=== PATIENT | female | born 1985 | race Caucasian/White ===

== ENCOUNTER 2016-10-14 20:14 | Emergency (ER) | payer SELFPAY ==
[~2016-10-14] VITALS: Ht 152.4 cm; Wt 97.7 kg
[~2016-10-14 20:14] MED LIST: CEPH500 PO; METF500T4 PO
[2016-10-14 21:01] LABS: GLUCOSE,POINT OF CARE 368 MG/DL (70-110)
[2016-10-14] MEDS ORDERED: METF-844 PO (21:20)
[2016-10-14] MEDS ORDERED: GLIP5TAB11 PO (21:20)
[2016-10-14 23:22] LABS: GLUCOSE COMMENT 1 Doctor Notified; GLUCOSE,POINT OF CARE 297 MG/DL (70-110)
[2016-10-14] MEDS ORDERED: SODIUM CHLORIDE 0.9% 1,000 ML IV ONE (23:30)
[2016-10-15 00:12] VITALS: BP 110/67
== END 2016-10-15 00:47 | disposition home or self-care (01) ==
LOC: EMS 20:16
DX: J40 Bronchitis, not specified as acute or chronic (principal); E11.9 Type 2 diabetes mellitus without complications; F17.200 Nicotine dependence, unspecified, uncomplicated
CPT/HCPCS: 71020; 81025; 82948; 82962; 96360; 99284; J7030

== ENCOUNTER 2018-08-12 21:56 | Emergency (ER) | payer MEDICAID ==
[~2018-08-12] VITALS: Ht 160 cm; Wt 110.0 kg
[~2018-08-12 21:56] MED LIST changes: +GLIP5TAB11 PO; +METF-844 PO; +METF-960 PO; -METF500T4 PO
[2018-08-12 22:01] VITALS: BP 134/87
[2018-08-12] MEDS ORDERED: GLIP5 PO (22:05)
[2018-08-12] MEDS ORDERED: CARISOPRODOL 350 MG TABLET PO ONE (23:30)
[2018-08-12] MEDS ORDERED: KETOROLAC TROMETHAMINE 60 MG/2 ML VIAL IM ONE (23:30)
== END 2018-08-13 00:23 | disposition home or self-care (01) ==
LOC: EMS 21:58
DX: M54.2 Cervicalgia (principal); M54.6 Pain in thoracic spine; E11.9 Type 2 diabetes mellitus without complications; F17.210 Nicotine dependence, cigarettes, uncomplicated; Z79.84 Long term (current) use of oral hypoglycemic drugs
CPT/HCPCS: 82962; 96372; 99283; J1885

== ENCOUNTER 2021-01-05 18:27 | Emergency (ER) | payer MEDICAID ==
[~2021-01-05] VITALS: Ht 154.9 cm; Wt 100.0 kg
[~2021-01-05 18:27] MED LIST changes: -CEPH500 PO; +GLIP5 PO; -GLIP5TAB11 PO; -METF-844 PO
[2021-01-05] MEDS ORDERED: SODIUM CHLORIDE 0.9% 1,000 ML IV ONE ×2 (19:30→20:45)
[2021-01-05] MEDS ORDERED: KETOROLAC TROMETHAMINE 30 MG/ML VIAL IVP ONE (19:30)
[2021-01-05 20:12] LABS: BASOPHILS % (AUTO) 0.7 % (0.0-2.0); EOSINOPHILS % (AUTO) 0.7 % (1.0-6.0); HEMATOCRIT 40.3 % (36-46); HEMOGLOBIN 13.1 g/dL (12.0-16.0); LYMPHOCYTES # (AUTO) 3.9 K/uL (1.0-4.8); LYMPHOCYTES % (AUTO) 29.6 % (22.0-44.0); MEAN CORPUSCULAR HGB CONC 32.5 G/dL (31.0-37.0); MEAN CORPUSCULAR VOLUME 83 fL (80-100); MONOCYTES # (AUTO) 0.7 K/uL (0.1-1.0); MONOCYTES % (AUTO) 5.4 % (2.0-9.0); NEUTROPHILS # (AUTO) 8.5 K/uL (1.8-7.7); NEUTROPHILS % (AUTO) 63.6 % (40.0-70.0); PLATELET COUNT (AUTO) 488 K/uL (150-450); RED BLOOD CELL COUNT(AUTO) 4.86 MIL/uL (4.00-5.20); RED CELL DISTRIBUTION WIDTH 14.6 % (11.5-14.5)
[2021-01-05 20:22] LABS: ANION GAP 9 mmol/L (8-16); CALCIUM, TOTAL 9.5 mg/dL (8.8-10.5); CARBON DIOXIDE 28 mmol/L (22-29); CHLORIDE 101 mmol/L (98-107); CREATININE 0.66 mg/dL (0.60-1.30); GLOMERULAR FILTR. RATE CALC > 60 mL/min (>60); GLUCOSE,RANDOM 151 mg/dL (70-110); POTASSIUM 3.6 mmol/L (3.5-5.1); SODIUM SERUM 138 mmol/L (136-145); UREA NITROGEN, BLOOD 14 mg/dL (7-18)
[2021-01-05 20:33] LABS: ALANINE AMINOTRANSFERASE 35 U/L (12-78); ALBUMIN 3.5 g/dL (3.4-5.0); ALKALINE PHOSPHATASE 97 U/L (46-116); ASPARTATE AMINOTRANSFERASE 13 U/L (15-37); BILIRUBIN,TOTAL 0.2 mg/dL (0.1-1.0); HCG,QUANTITATIVE < 1 mIU/mL (0-6)
[2021-01-05 20:45] LABS: TOTAL PROTEIN, SERUM 7.3 g/dL (6.4-8.2)
[2021-01-05 21:00] LABS: COVID AG,FIA SOURCE NASOPHARYNGEAL
[2021-01-05 21:08] VITALS: BP 120/72
[2021-01-05 22:01] LABS: APPEARANCE,URINE CLEAR (CLEAR); BILIRUBIN,URINE NEGATIVE (NEGATIVE); GLUCOSE, URINE (UA) >=1000 mg/dL (NEGATIVE); KETONES,URINE TRACE mg/dL (NEGATIVE); LEUKOCYTE ESTERASE ,URINE NEGATIVE (NEGATIVE); NITRATE,URINE NEGATIVE (NEGATIVE); OCCULT BLOOD,URINE NEGATIVE (NEGATIVE); PROTEIN,URINE TRACE (NEGATIVE); UROBILINOGEN,URINE 0.2 mg/dL (<=1.0)
[2021-01-05 22:08] LABS: BACTERIA,URINE Rare /HPF (None Seen); RBC,URINE 0-2 /HPF (0-2); SQUAMOUS EPITHELIAL CELL,UR Moderate /LPF (None Seen); WBC,URINE 0-2 /HPF (0-5); YEAST,URINE Rare /HPF (None Seen)
== END 2021-01-05 22:24 | disposition home or self-care (01) ==
LOC: EMS 18:27
DX: M79.10 Myalgia, unspecified site (principal); R42 Dizziness and giddiness; R51.9 Headache, unspecified; M54.6 Pain in thoracic spine; E11.9 Type 2 diabetes mellitus without complications; F17.210 Nicotine dependence, cigarettes, uncomplicated; Z20.822 Contact with and (suspected) exposure to COVID-19; Z79.84 Long term (current) use of oral hypoglycemic drugs
CPT/HCPCS: 36415; 71045; 80053; 81001; 82962; 84702; 85025; 87426; 93005; 96361; 96374; 99285; J1885; J7030

== ENCOUNTER 2021-08-03 17:58 | Emergency (ER) | payer MEDICAID ==
[~2021-08-03] VITALS: Ht 154.9 cm; Wt 97.7 kg
[~2021-08-03 17:58] MED LIST changes: +METF-1211 PO; -METF-960 PO
[2021-08-03] MEDS ORDERED: ACETAMINOPHEN 325 MG TABLET PO ONE (19:00)
[2021-08-03 20:01] LABS: COVID AG,FIA SOURCE NASOPHARYNGEAL
[2021-08-03 20:17] VITALS: BP 106/65
== END 2021-08-03 20:32 | disposition home or self-care (01) ==
LOC: EMS 18:08
DX: G56.01 Carpal tunnel syndrome, right upper limb (principal); B34.9 Viral infection, unspecified; Z20.822 Contact with and (suspected) exposure to COVID-19; E11.9 Type 2 diabetes mellitus without complications; F17.210 Nicotine dependence, cigarettes, uncomplicated; Z79.84 Long term (current) use of oral hypoglycemic drugs; Z79.899 Other long term (current) drug therapy
CPT/HCPCS: 82962; 87426; 99283; C9803; U0003

== ENCOUNTER 2022-08-09 11:25 | Emergency (ER) | payer MEDICAID, OTHER ==
[~2022-08-09] VITALS: Ht 157.5 cm; Wt 75.0 kg
[~2022-08-09 11:25] MED LIST changes: -GLIP5 PO; +GLIP5TAB12 PO
[2022-08-09] MEDS ORDERED: ASPI-1444 PO (11:31)
[2022-08-09] MEDS ORDERED: PREN-155 PO (11:31)
[2022-08-09] MEDS ORDERED: INS7030 SQ (11:31)
[2022-08-09 12:48] VITALS: BP 114/70
[2022-08-09] MEDS ORDERED: IBUP-1554 PO (12:53)
== END 2022-08-09 16:19 | disposition home or self-care (01) ==
LOC: EMS 11:25
DX: S63.502A Unspecified sprain of left wrist, initial encounter (principal); E11.9 Type 2 diabetes mellitus without complications; F17.210 Nicotine dependence, cigarettes, uncomplicated; Z98.890 Other specified postprocedural states; X50.3XXA Overexertion from repetitive movements, initial encounter; Y93.89 Activity, other specified; Y92.89 Other specified places as the place of occurrence of the external cause; Y99.0 Civilian activity done for income or pay
CPT/HCPCS: 29280; 99283

== ENCOUNTER 2023-02-05 14:25 | Emergency (ER) | payer MEDICAID ==
[~2023-02-05] VITALS: Ht 154.9 cm; Wt 92.3 kg
[~2023-02-05 14:25] MED LIST changes: +ASPI-1444 PO; -GLIP5TAB12 PO; +IBUP-1554 PO; +INS7030 SQ; -METF-1211 PO; +PREN-155 PO
[2023-02-05 14:39] VITALS: TEMP 98.2
[2023-02-05 15:10] LABS: BASOPHILS % (AUTO) 0.3 % (0.0-2.0); EOSINOPHILS % (AUTO) 1.5 % (1.0-6.0); HEMOGLOBIN 11.2 g/dL (12.0-16.0); LYMPHOCYTES # (AUTO) 2.8 K/uL (1.0-4.8); LYMPHOCYTES % (AUTO) 39.7 % (22.0-44.0); MEAN CORPUSCULAR HEMOGLOBIN 25.8 pg (26.0-34.0); MEAN CORPUSCULAR VOLUME 80 fL (80-100); MONOCYTES # (AUTO) 0.4 K/uL (0.1-1.0); MONOCYTES % (AUTO) 6.4 % (2.0-9.0); NEUTROPHILS # (AUTO) 3.6 K/uL (1.8-7.7); NEUTROPHILS % (AUTO) 52.1 % (40.0-70.0); PLATELET COUNT (AUTO) 400 K/uL (150-450); RED BLOOD CELL COUNT(AUTO) 4.35 MIL/uL (4.00-5.20); RED CELL DISTRIBUTION WIDTH 13.1 % (11.5-14.5)
[2023-02-05 15:19] LABS: ANION GAP 9 mmol/L (8-16); CALCIUM, TOTAL 8.7 mg/dL (8.8-10.5); CARBON DIOXIDE 27 mmol/L (22-29); CHLORIDE 101 mmol/L (98-107); CREATININE 0.58 mg/dL (0.60-1.30); GLOMERULAR FILTR. RATE CALC > 60 mL/min (>60); GLUCOSE,RANDOM 329 mg/dL (70-110); POTASSIUM 3.6 mmol/L (3.5-5.1); SODIUM SERUM 137 mmol/L (136-145)
[2023-02-05 15:30] LABS: ALANINE AMINOTRANSFERASE 14 U/L (12-78); ALBUMIN 3.1 g/dL (3.4-5.0); ALKALINE PHOSPHATASE 120 U/L (46-116); ASPARTATE AMINOTRANSFERASE 9 U/L (15-37); BILIRUBIN,TOTAL 0.2 mg/dL (0.1-1.0); HCG,QUANTITATIVE < 1 mIU/mL (0-6); TOTAL PROTEIN, SERUM 6.8 g/dL (6.4-8.2)
[2023-02-05 17:16] LABS: APPEARANCE,URINE CLEAR (CLEAR); BILIRUBIN,URINE NEGATIVE (NEGATIVE); GLUCOSE, URINE (UA) >=1000 mg/dL (NEGATIVE); KETONES,URINE NEGATIVE (NEGATIVE); LEUKOCYTE ESTERASE ,URINE NEGATIVE (NEGATIVE); NITRATE,URINE NEGATIVE (NEGATIVE); OCCULT BLOOD,URINE NEGATIVE (NEGATIVE); PH,URINE 5.5 (5.0-8.0); PROTEIN,URINE TRACE mg/dL (NEGATIVE); SPECIFIC GRAVITIY, URINE 1.037 (1.003-1.030); UROBILINOGEN,URINE <=1.0 mg/dL (<=1.0)
[2023-02-05 17:49] LABS: BACTERIA,URINE None Seen /HPF (None Seen); RBC,URINE None Seen /HPF (0-2); WBC,URINE 0-2 /HPF (0-5)
[2023-02-05] MEDS ORDERED: KETOROLAC TROMETHAMINE 60 MG/2 ML VIAL IM ONE (19:00)
[2023-02-05] MEDS ORDERED: HYDR-4072 PO (20:22)
[2023-02-05] MEDS ORDERED: ONDA-104 PO (20:22)
[2023-02-05] MEDS ORDERED: MAG30ORA11 PO (20:22)
[2023-02-05] MEDS ORDERED: MICO45CR76 VG (20:27)
[2023-02-05 20:45] VITALS: BP 109/64; PULSE 93; RESP 18
== END 2023-02-05 20:45 | disposition home or self-care (01) ==
LOC: EMS 14:25
DX: K80.70 Calculus of gallbladder and bile duct without cholecystitis without obstruction (principal); N76.0 Acute vaginitis; E11.9 Type 2 diabetes mellitus without complications; F17.210 Nicotine dependence, cigarettes, uncomplicated; Z98.890 Other specified postprocedural states
CPT/HCPCS: 99285; 76700; 80053; 81001; 84702; 85025; 36415; 96372; J1885; 81003

== ENCOUNTER 2023-12-27 14:27 | Emergency (ER) | payer MEDICAID ==
[~2023-12-27] VITALS: Ht 154.9 cm; Wt 84.1 kg
[~2023-12-27 14:27] MED LIST changes: +HYDR-4072 PO; +MAG30ORA11 PO; +MICO45CR76 VG; +ONDA-104 PO
[2023-12-27 14:30] VITALS: BP 127/82; PULSE 102; RESP 18; TEMP 98.2
[2023-12-27 15:04] LABS: BASOPHILS % (AUTO) 0.5 % (0.0-2.0); EOSINOPHILS % (AUTO) 0.9 % (1.0-6.0); HEMATOCRIT 35.1 % (36-46); LYMPHOCYTES # (AUTO) 2.4 K/uL (1.0-4.8); LYMPHOCYTES % (AUTO) 19.2 % (22.0-44.0); MEAN CORPUSCULAR HEMOGLOBIN 25.7 pg (26.0-34.0); MEAN CORPUSCULAR HGB CONC 31.3 G/dL (31.0-37.0); MEAN CORPUSCULAR VOLUME 82 fL (80-100); MONOCYTES # (AUTO) 0.6 K/uL (0.1-1.0); MONOCYTES % (AUTO) 4.6 % (2.0-9.0); NEUTROPHILS # (AUTO) 9.2 K/uL (1.8-7.7); NEUTROPHILS % (AUTO) 74.8 % (40.0-70.0); PLATELET COUNT (AUTO) 344 K/uL (150-450); RED BLOOD CELL COUNT(AUTO) 4.27 MIL/uL (4.00-5.20); RED CELL DISTRIBUTION WIDTH 14.2 % (11.5-14.5); WHITE BLOOD COUNT (AUTO) 12.3 K/uL (4.5-11.0)
[2023-12-27] MEDS: ACETAMINOPHEN 500 MG TABLET PO ONE (15:08)
[2023-12-27] MEDS: BACITRACIN 0.9 GM PACKET OINTMENT TP ONE (15:08)
[2023-12-27 15:16] LABS: ANION GAP 7 mmol/L (8-16); CALCIUM, TOTAL 8.1 mg/dL (8.8-10.5); CARBON DIOXIDE 26 mmol/L (22-29); CHLORIDE 105 mmol/L (98-107); CREATININE 0.76 mg/dL (0.60-1.30); GLOMERULAR FILTR. RATE CALC > 60 mL/min (>60); GLUCOSE,RANDOM 121 mg/dL (70-110); POTASSIUM 3.8 mmol/L (3.5-5.1); SODIUM SERUM 138 mmol/L (136-145); UREA NITROGEN, BLOOD 8 mg/dL (7-18)
== END 2023-12-27 16:12 | disposition home or self-care (01) ==
LOC: EMS 14:27
DX: S91.202A Unspecified open wound of left great toe with damage to nail, initial encounter (principal); S90.511A Abrasion, right ankle, initial encounter; E11.9 Type 2 diabetes mellitus without complications; K21.9 Gastro-esophageal reflux disease without esophagitis; F17.210 Nicotine dependence, cigarettes, uncomplicated; Z79.4 Long term (current) use of insulin; W18.41XA Slipping, tripping and stumbling without falling due to stepping on object, initial encounter; Y93.89 Activity, other specified; Y92.89 Other specified places as the place of occurrence of the external cause; Y99.8 Other external cause status
CPT/HCPCS: 80048; 82962; 84703; 85025; 99283